=== PATIENT | male | born 1965 | race Caucasian/White ===

== ENCOUNTER 2017-03-15 16:53 | Inpatient (IN) ==
--- NOTE | 2017-03-15 18:17 | Ultrasound Report ---
Exam: US venous doppler LE RT Indication: Pain and swelling Date: 03/15/2017 5:23 PM Technique: Khoury scale Doppler with color flow with spectral broadening was performed in routine fashion of the lower extremities per routine protocol Findings: Occlusive thrombus extending from the popliteal to the common femoral vein. Ultrasound images were captured and stored. Impression: Occlusive thrombus extending from the right popliteal through the common femoral vein PROCEDURE INTERPRETED AT [facility] DEPARTMENT OF RADIOLOGY Final Report Signed by: Mario Khoury MD
[2017-03-15] MEDS ORDERED: CLINDAMYCIN INJ 900 MG in PREMIX 1 EACH IV STA (18:50)
[2017-03-15] MEDS ORDERED: ENOXAPARIN 100 MG/ML SYRINGE SUBCUT STA (18:50)
--- NOTE | 2017-03-15 18:54 | Emergency Department Note ---
Arrival - Arrival Chief Complaint: Extremity Problem Stated Complaint: PAIN AND SWELLING IN RIGHT LEG ED Nursing Triage Note: right leg redness and swelling - dx with blood clot x 4 weeks ago and was placed on elliquis - pt states that he is still having pain and swelling to his right - pt denies follow up after his hospitalization - pt states that he only has 4 eliquis left and states that he does not have a appt with doctor to get meds filled - pt states that he is out of his norco Mode of Arrival: Ambulatory Limitations: No Limitations Source: Patient Time Seen by Provider: 03/15/17 18:48 - History of Present Illness HPI Narrative: This 51-year-old white male presents with progressive right leg redness and swelling after being diagnosed with a right lower extremity DVT 4 weeks ago. At that time he was started on Eliquis but failed to follow-up for adjustment of the dosing. He currently presents with a tense tender right lower extremity with no complaints of chills, fever, shortness of breath, hemoptysis, or pleuritic chest pain. Currently although uncomfortable he appears in no acute distress. Onset (ago): week(s) (Patient presents 4 weeks post onset of symptoms) Allergies/Adverse Reactions: Allergies Allergy/AdvReac Type Severity Reaction Status Date / Time codeine AdvReac Nausea Verified 02/16/17 12:44 Home Medications: Home Medications Medication Instructions Recorded Confirmed Type Allopurinol 200 mg PO BID #60 tablet 02/16/17 Rx Apixaban [Eliquis] 2.5 mg PO BID #60 tablet 02/16/17 Rx Indomethacin Cap [Indocin Cap] 50 mg PO BID #30 capsule 02/16/17 Rx traMADol TAB [Ultram] 50 mg PO Q6H #30 tablet 02/16/17 Rx Review of System - Review of System 12 point system: reviewed and no additional remarkable complaints except as stated - Review of System Constitutional: Present: as per HPI Respiratory: Present: as per HPI Cardiovascular: Present: as per HPI Musculoskeletal: Present: as per HPI Medical,Surgical,& Family Hx - Medical History Rheumatology: History of;: Gout Musculoskeletal: History of: Musculoskeletal Problems - Social History Smoking Status: Current every day smoker Frequency of Alcohol Use: Occasionally Type of Drug Use: None Exam Physical Examination: GENERAL: Well developed, well nourished white male in no acute distress. HEENT: Normocephalic. No trauma. Moist mucous membranes. EOMI. PERRLA. ENT NML NECK: Supple. No adenopathy. CARDIAC: Regular. No murmurs. Heart rate 95 CHEST: Clear to auscultation. No respiratory distress. O2 sat 97% ABDOMEN: Soft. Nontender. Active bowel sounds. EXTREMITIES: No trauma. Normal ROM. Swelling of the right lower extremity from the thigh to the toes with early superficial cellulitis as well as right calf tenderness and positive Homans on the right SKIN: No diaphoresis. Right lower extremity superficial cellulitis is noted. NEURO: Alert. Neuro intact no focal deficits. Vital Signs: Vital Signs Temperature 98.1 F 03/15/17 18:36 Pulse Rate 95 H 03/15/17 18:36 Respiratory Rate 20 03/15/17 18:36 Blood Pressure 148/84 03/15/17 18:36 O2 Sat by Pulse Oximetry 97 03/15/17 17:15 Course - Reevaluation(s) Reevaluation #1: I have advised the patient the need for further treatment and evaluation for his combination of superficial cellulitis and propagating DVT in the right lower extremity. - Consultations Consultation #1: Discussed with hospitalist service who will admit for further evaluation treatment. Results - Labs CBC & BMP: 03/15/17 18:43 03/15/17 18:43 Labs: I reviewed the laboratory and noted its normalcy excepting for the elevated d- dimer. - Diagnostic Findings Procedure: Ultrasound: image reviewed by me, report reviewed by me (Thrombus from popliteal to proximal femoral on right lower extremity ultrasound) Disposition Clinical Impression: Right lower extremity DVT, Superficial cellulitis RLE Case discussed with: patient, patient's family Disposition: Disch To Home/Self Care Condition: Guarded Time of Disposition: 19:42
[2017-03-15 19:04] LABS: Basophils % 0.3 % (0.0-0.8); Eosinophils % 0.1 % (0.00-10.9); Hematocrit 43.9 VOL% (42.0-52.0); Hemoglobin 15.4 GM/DL (14.0-18.0); Immature Granulocytes % 0.4 %; Immature Granulocytes Absolute 0.04 #; Lymphocytes # 1.6 10*3/uL (1.4-4.0); Lymphocytes % 16.3 % (21.2-54.2); Mean Corpuscular HGB Conc 35.1 GM/DL (32-36); Mean Corpuscular Hemoglobin 31 PG (27-34); Mean Corpuscular Volume 87.8 FL (87-102); Mean Platelet Volume 9.2 FL (9.6-12.0); Monocytes # 0.7 10*3/uL (0.11-0.8); Neutrophils # 7.4 10*3/uL (1.4-7.4); Neutrophils % 75.9 % (38.7-73.9); Platelet Count 209 T/CUMM (130-400); Red Cell Distribution Width 14.3 % (9.3-17.3); White Blood Count 9.7 T/CUMM (4-12)
[2017-03-15 19:17] LABS: PT Patient Result 10.4 SECS
[2017-03-15 19:35] LABS: Albumin 3.7 G/DL (3.4-5.0); Calcium 9.5 MG/DL (8.5-10.1); Osmolality,Calculated 275.7 MOS/KG (273-304); Total Protein 7.2 G/DL (6.4-8.3)
[2017-03-15] MEDS ORDERED: CLINDAMYCIN INJ 50 ML IV ONE (19:36)
[2017-03-15] MEDS ORDERED: ENOXAPARIN 100 MG/ML SYRINGE SUBCUT ONE (20:05)
--- NOTE | 2017-03-15 20:27 | Hospitalist History & Physical ---
Assessment and Plan - Time spent with patient Time spent with patient: Less than 30 minutes Time spent discussing smoking cessation with patient: 3 to 10 minutes (1) DVT (deep venous thrombosis) Status: Acute Assessment and plan: We will increase Eliquis to 10 mg p.o. twice daily [place] 10 mg p.o. as needed Current Visit: Yes (2) Cellulitis Status: Acute Assessment and plan: Clindamycin 900 mg IV daily Patient is currently afebrile. White blood cell count is 9.7 neutrophils of 75.9 Current Visit: Yes (3) Gout Status: Chronic Assessment and plan: We will draw uric acid Continue allopurinol daily Current Visit: No History of Present Illness Chief complaint: right leg pain and swelling History of present illness: Called to fast track for Mr. Schaefer who is a 51 year old male that presents tonight complaining of right leg pain and swelling. Patient was diagnosed with multiple DVTs in the right lower extremity on February 16, 2017. He was placed on Eliquis 2.5 mg p.o. twice daily daily and [place] 10 mg as needed. Patient states the swelling in his leg has decreased but the pain has continued to become severe. Repeat venous Dopplers today showed occlusive thrombus extending from the right popliteal to the common femoral vein. Patient now has acute cellulitis from approximately mid thigh to foot. He has received Lovenox 100 mg subcu and Cleocin 900 mg IV in fast track. He will be admitted to inpatient. We will increase his Eliquis to 10 mg p.o. twice daily and continue Cleocin 900 mg daily. We will control his pain with [place] 10 mg as needed. Patient states he has recently moved here from [place] and needs a referral for a primary care physician. We will consult social work nurse for information on the free clinic. Patient also has a history of gout, psoriasis, and cholecystectomy. Patient is requesting a referral for his psoriasis. Home medications were reviewed and reconciled. Home Medications Medication Instructions Recorded Confirmed Type Allopurinol 200 mg PO BID #60 tablet 02/16/17 Rx Apixaban [Eliquis] 2.5 mg PO BID #60 tablet 02/16/17 Rx Indomethacin Cap [Indocin Cap] 50 mg PO BID #30 capsule 02/16/17 Rx traMADol TAB [Ultram] 50 mg PO Q6H #30 tablet 09/01/17 Rx Allergies Allergy/AdvReac Type Severity Reaction Status Date / Time codeine AdvReac Nausea Verified 02/16/17 12:44 Medical,Surgical,& Family Hx - Medical History Cardio: No history of: CHF, Hypertension, [place] Psychological: No history of: Anxiety Disorders Neurology: No history of: Cerebrovascular Accident, Migraine, Seizures HEENT: No history of: Ear Problem, Eye Problem Endocrine: No history of: Adrenal Disease, Diabetes Mellitus (IDDM), Dyslipidemia, Thyroid Disorder Rheumatology: History of;: Gout, Psoriasis Respiratory: No history of: Asthma, COPD, Obstructive Sleep Apnea, Pulmonary Embolism Renal: No history of: Renal Problems Genitourinary: No history of: Problems Gastrointestinal: History of: GERD Musculoskeletal: No history of: Degenerative Disk Disease Hematology: No history of: Anemia - Surgical History Cardiac Surgeries: Patient Denies: Cardiac Surgery Thoracic Surgeries: Patient denies;: Kidney (Renal Surgery) Neurologic Surgeries: Patient denies: Neurologic Surgery HEENT Surgeries: Patient denies: Thyroid Surgery, Tonsilectomy & Adenoidectomy Abdominal Surgeries: Surgical HX of: Cholecystectomy Reproductive Surgeries: Patient denies;: Breast Surgery Orthopedic Surgeries: Patient denies;: Total Hip Replacement - Family History Family History: Reports;: Family Cancer (Motherbreast cancer and throat cancer) , Family Diabetes (Paternal grandmother), Family Heart Disease (Father), Family Hypertension (Mother), Additional Family History (Brothersarthritis and gout) - Social History Smoking Status: Current every day smoker Have you smoked in the last 12 months: Yes (1 pack per day for 34 years) Time spent discussing smoking cessation with patient: 3 to 10 minutes Frequency of Alcohol Use: Occasionally (Approximately 1 time a month) Type of Drug Use: None Marital Status: Single Lives With:: Parent Functional capacity: independent ambulation - Constitutional Constitutional: Absent: anorexia, chills, fatigue, headache(s), weakness - EENT Eyes: Absent: blurry vision Ears: Absent: decreased hearing Nose, mouth and throat: Absent: dysphagia, headache(s) - Cardiovascular Cardiovascular: Present: edema. Absent: chest pain at rest, chest pain with activity, dyspnea, dyspnea on exertion, orthopnea, palpitations - Respiratory Respiratory: Absent: cough, dyspnea - Gastrointestinal Gastrointestinal: Absent: abdominal pain, change in bowel habits, constipation, dyspepsia, nausea, vomiting - Musculoskeletal Musculoskeletal: Present: other (Right leg pain and swelling and increased redness) - Neurological Neurological: Absent: frequent falls - Psychiatric Psychiatric: Absent: anxiety - Endocrine Endocrine: Absent: cold intolerance, heat intolerance - Hematologic/Lymphatic Hematologic/Lymphatic: Absent: easy bleeding Exam - Constitutional Vitals: Period Temp Pulse Resp BP Sys/Carlson Pulse Ox Last 24 Hr 98.1 F-98.1 F 75-95 20-20 135-148/82-84 96-97 General appearance: no acute distress, over weight - Head Head exam: Present: normal inspection, normocephalic - Eye Eye exam: Present: EOMI Pupils: Present: DENNIS, normal accommodation - ENT ENT exam: Present: normal exam - Neck Neck exam: Present: normal inspection - Respiratory Respiratory exam: Present: clear to auscultation bilaterally (Respirations even and unlabored. Symmetrical rise and fall of chest noted) - Cardiovascular Cardiovascular exam: Present: regular rate and rhythm. Absent: diastolic murmur , systolic murmur - GI/Abdominal GI/Abdominal exam: Present: normal bowel sounds, soft. Absent: distended, tenderness - Extremities Exam Extremities exam: Present: normal capillary refill, full ROM, edema, other ( Right leg redness and swelling. 3+ nonpitting edema to leg.) - Back Exam Back exam: Present: normal inspection - Neurological Exam Neurological exam: Present: alert, oriented X3 (Answers questions appropriately. Makes good eye contact.) - Psychiatric Psychiatric exam: Present: normal affect, normal mood - Skin Skin exam: Present: normal color, warm, dry, erythema (Right leg), intact Results - Labs CBC & BMP: 03/15/17 18:43 03/15/17 18:43 Lab Results: I have reviewed the past 24 hour labs
[2017-03-15] MEDS ORDERED: DOCUSATE SODIUM 100 MG CAPSULE PO PRN (22:35)
[2017-03-15] MEDS ORDERED: ZALEPLON 5 MG CAPSULE PO PRN (22:35)
[2017-03-15] MEDS ORDERED: ONDANSETRON 4 MG/2 ML VIAL IV PRN (22:35)
[2017-03-15] MEDS: ALLOPURINOL 100 MG TABLET PO SCH (23:25)
[2017-03-15] MEDS: APIXABAN 5 MG TABLET PO SCH (23:25)
[2017-03-16] MEDS ORDERED: PANTOPRAZOLE 40 MG TABLET PO SCH (09:00)
[2017-03-16] MEDS: ALLOPURINOL 100 MG TABLET PO SCH (09:17)
[2017-03-16] MEDS: APIXABAN 5 MG TABLET PO SCH (09:18)
[2017-03-16] MEDS ORDERED: traMADol 50 MG TABLET PO PRN (10:10)
[2017-03-16] MEDS ORDERED: COLCHICINE 0.6 MG TABLET PO PRN (10:10)
--- NOTE | 2017-03-16 10:17 | Discharge Summary ---
Hospital Course - Hospital Course Hospital Course: 51-year-old male with right leg pain and swelling. Patient was diagnosed with a DVT February 16, 2017 but was placed on the incorrect dose of Eliquis and his clot worsened. He presented to the emergency room received 100 mg subcu Lovenox and his Eliquis was increased to 10 mg twice a day which he will need to continue for 7 days then he will decrease to 5 mg twice a day and he needs to take that for a total of 3 months. I have given him 5 boxes of 5 mg of Eliquis, each box has 14 tabs. He is already used his 30 day free card. account services analyst was consulted and provided him with the information to call the drug company along with his prescription that I have already signed. We should be able to have his Eliquis sent directly to his house. There was a question of whether he had an underlying infection but I think this is just worsening of the clot. His white count is normal and he was never febrile. I have discontinued the Cleocin at this time. I asked Dr. Doyle to evaluate him to see if he would be appropriate for a filter. Dr. Doyle is reviewed his films and feels that it was very unlikely for the clot to move at this point and that the filter is not indicated. Patient follow-up with his primary care doctor in 1-2 weeks. Patient had a mild elevation in his creatinine on admission but I would not adjust his eliquis dose. - Time spent with patient Time with patient DS: Greater than 30 minutes (45 min) Specialty Discharge - Follow Up or Referrals Follow up with: pmd, [Other] - 2 Weeks (Please call your primary doctor for a 2 week follow up for hospital admission) Discharge Plan - Discharge Data Disposition: Disch To Home/Self Care Condition at Discharge: Stable Discharge Diet: heart healthy Activity: resume usual activities as tolerated Hygiene: no restrictions Weight Bearing at Discharge: full weight bearing - Discharge Medications New Apixaban [Eliquis] 10 mg PO BID #60 tablet Hydrocodone/Acetaminophen [[place] 10-325 Tablet] 1 each PO Q6HR #30 tablet Continue Colchicine [Colcrys] 0.6 mg PO BID PRN PRN Reason: Gout Indomethacin Cap [Indocin Cap] 50 mg PO BID #30 capsule traMADol TAB [Ultram] 50 mg PO Q6H #30 tablet Allopurinol 100 mg PO BID Discontinued Apixaban [Eliquis] 2.5 mg PO BID #60 tablet - Follow Up or Referral Follow Up: Dr mary [Other] - 2 Weeks (Please call your primary doctor for a 2 week follow up for hospital admission) - Forms/Instructions Instructions: Cellulitis (DC), Deep Venous Thrombosis (DC) Additional Discharge Instructions: eliquis 10 mg po bid for 7 days then 5 mg po bid for 3 months Exam - Constitutional Vitals: Period Temp Pulse Resp BP Sys/Carlson Pulse Ox Last 24 Hr 96.9 F-98.1 F 63-95 18-20 110-149/59-97 92-98 General appearance: normal weight, no acute distress - Respiratory Respiratory exam: Present: clear to auscultation bilaterally. Absent: rhonchi, wheezes - Cardiovascular Cardiovascular exam: Present: regular rate and rhythm. Absent: systolic murmur - Extremities Exam Extremities exam: Present: edema - Neurological Exam Neurological exam: Present: alert, oriented X3 Discharge Results Procedures and tests throughout hospitalization: Pending Orders 03/16/17 09:31 IR IVC filter placement Stat Labs on day of discharge: Labs from last 24 hours 03/15/17 03/15/17 03/15/17 18:43 18:43 18:43 WBC RBC Hgb Hct MCV MCH MCHC RDW Plt Count MPV Neut % (Auto) Lymph % (Auto) Pratt % (Auto) Eos % (Auto) Baso % (Auto) Neut # (Auto) Lymph # (Auto) Pratt # (Auto) Eos # (Auto) Baso # (Auto) Immature Gran % Nucleated RBC % Immature Gran # Nucleated RBCs # Immature Plt Fraction INR PT Patient/Control Mix D-Dimer, Quantitative 1.9 Circ Anticoag PTT Sodium 138 Potassium 4.0 Chloride 105 Carbon Dioxide 26 Anion Gap 11.0 BUN 16 Creatinine 1.70 H GFR Calculation 59 BUN/Creatinine Ratio 9.00 Glucose 100 Calculated Osmolality 275.7 Uric Acid 8.2 H Calcium 9.5 Total Bilirubin 1.00 AST 20 ALT 32 Alkaline Phosphatase 103 Total Protein 7.2 Albumin 3.7 Globulin 3.5 Albumin/Globulin Ratio 1.0 L 03/15/17 03/15/17 18:43 18:43 WBC 9.7 RBC 5.00 Hgb 15.4 Hct 43.9 MCV 87.8 MCH 31 MCHC 35.1 RDW 14.3 Plt Count 209 MPV 9.2 L Neut % (Auto) 75.9 H Lymph % (Auto) 16.3 L Pratt % (Auto) 7.0 Eos % (Auto) 0.1 Baso % (Auto) 0.3 Neut # (Auto) 7.4 Lymph # (Auto) 1.6 Pratt # (Auto) 0.7 Eos # (Auto) 0.0 Baso # (Auto) 0.0 Immature Gran % 0.4 Nucleated RBC % 0.0 Immature Gran # 0.04 Nucleated RBCs # 0.00 Immature Plt Fraction 0.0 INR 1.0 PT Patient/Control Mix 10.4 D-Dimer, Quantitative Circ Anticoag PTT 29.0 Sodium Potassium Chloride Carbon Dioxide Anion Gap BUN Creatinine GFR Calculation BUN/Creatinine Ratio Glucose Calculated Osmolality Uric Acid Calcium Total Bilirubin AST ALT Alkaline Phosphatase Total Protein Albumin Globulin Albumin/Globulin Ratio DS: Provider Date of admission: 03/15/17 20:12 Primary care physician: . No PCP Attending physician on admission: Sukhdeep Young MD Consults: 03/15/17 22:35 Consult to Case Mgmt/Social Srvs [CONS] Routine Reason for Case Mgmt/Social Srvs: Discharge Planning Consult Comment: Pt recently moved here; needs info on free clinic Discharging clinician: Ashley Rosenberg MD
[2017-03-16] MEDS ORDERED: INDOMETHACIN 50 MG CAPSULE PO SCH (10:30)
[2017-03-16] MEDS ORDERED: INDOMETHACIN 25 MG CAPSULE PO SCH (10:30)
--- NOTE | 2017-03-16 10:32 | Event Note ---
51-year-old male with right lower extremity DVT involving the common femoral through popliteal vein, initially diagnosed 02/16/2017. Discharged on subtherapeutic dose of Eliquis, 2.5 mg twice daily. Presents today with increased redness, likely cellulitis of the right leg, and repeat EVT ultrasound shows continued thrombus in the same territory. When I review the images, there do appear to be small tendrils of recanalization developing within the clot. At this point, patient does not meet strict criteria for IVC filter placement as he has had not had a PE, has adequate cardiopulmonary reserve, and has not "failed therapeutic anticoagulation". Recommend therapeutic anticoagulation. At this point, the thrombus is mostly organized as well. Case discussed with Dr. Rosenberg. Please call with questions.
[2017-03-16 13:11] VITALS: BP 163/70
[2017-03-16] MEDS ORDERED: CLINDAMYCIN INJ 900 MG in PREMIX 1 EACH IV SCH (15:00)
== END 2017-03-16 14:30 | disposition home or self-care (01) | DRG 300 ==
LOC: N.ED 16:53 → SUATTDRO 20:12 → N.EDINP 20:12 → N.3E 21:19
PROVIDERS: ADMIT Internal Medicine; ATTEND Internal Medicine